=== PATIENT | female | born 1985 | race Caucasian/White ===

== ENCOUNTER 2020-09-09 18:58 | Emergency (ER) | payer SELFPAY ==
[~2020-09-09] VITALS: Ht 172.7 cm; Wt 78.0 kg
--- NOTE | 2020-09-09 19:16 | NUR ---
pt bibra c/o "not feeling well since she needs a med refill". Pt aaox4 breathing evenly and unlabored. MD at bedside. Pt attached to monitor and pox. WIll continue to monitor
[2020-09-09] MEDS ORDERED: LURA40TA PO (19:32)
[2020-09-09] MEDS ORDERED: HYDR25CA PO (19:33)
--- NOTE | 2020-09-09 19:37 | NUR ---
Patient discharged to home in stable condition. Written and verbal after care instructions given. Patient verbalizes understanding of instruction.Pt ambulatory with a steady gait
[2020-09-09 19:43] VITALS: BP 140/89
== END 2020-09-09 19:37 | disposition home or self-care (01) ==
LOC: ER 19:01
DX: F31.9 Bipolar disorder, unspecified (principal); Z76.0 Encounter for issue of repeat prescription; E11.9 Type 2 diabetes mellitus without complications; Z79.899 Other long term (current) drug therapy